=== PATIENT | male | born 1955 ===

== ENCOUNTER 2016-09-11 08:27 | Day surgery (SDC) | payer BC ==
[~2016-09-11] VITALS: Ht 190.5 cm; Wt 102.3 kg
[~2016-09-11 08:27] MED LIST: IBUPROFEN400 MG PO
[2016-09-11] MEDS ORDERED: HYCET1 ML PO (12:26)
--- NOTE | 2016-09-11 12:28 | Provider's Discharge Care Plan ---
Problem, Goal, Plan Problem List 1. S/P LAP REPAIR RIGHT INGUINAL HERNIA Goals: Improve function, Therapeutic intervention Instructions: Follow up as directed, Take meds as directed
--- NOTE | 2016-09-11 12:28 | Provider's Discharge Care Plan ---
Problem, Goal, Plan Problem List 1. S/P LAP REPAIR RIGHT INGUINAL HERNIA Goals: Improve function, Therapeutic intervention Instructions: Follow up as directed, Take meds as directed
--- NOTE | 2016-09-11 12:48 | Operative Report ---
Operative Report Date of Surgery: 09/11/16 Preoperate Diagnosis: right inguinal hernia Postoperative Diagnosis: right indirect anal hernia Surgeon: Christiano Ty MD Construction Manager Surgeon: none Procedure Performed: Laparoscopic right inguinal hernia with 14 x 12 cm preperitoneal mesh FAHEEM repair Anesthesia: Gen. endotracheal Indications: 60-year-old male with several month history of a right groin fold. Patient states that it's very sore with vigorous activity and towards the end of the day. Patient states that he is able to reduce the bulge. On physical examination he is known to have a reducible right inguinal hernia. FINDINGS: Right indirect inguinal hernia moderate to large in size. Repair with 14 x 12 cm [employer]ien Pro-water taxi boat mate mesh Surgical Technique: Patient brought to the operating room placed in the dorsal supine position. Patient underwent general endotracheal anesthesia by the anesthesiology department. After proper anesthesia had taken effect, patient's abdomen was prepped using Betadine and draped in a sterile fashion. An infraumbilical incision made. A Veress needle was introduced through this site into the abdominal cavity., After ascertaining its appropriate position with suction irrigation a pneumoperitoneum was obtained using CO2 insufflation to proximal and 14- 15 mmHg pressure. Once this pressure was reached, the varies needle was removed. A 10 mm trocar was introduced through this site. The trocar removed leaving the sleeve behind, through which a laparoscopic video camera was introduced into the abdominal cavity. The aforementioned findings noted. Under direct visualization a separate 10 mm hole was placed in the right lower quadrant, and a 5 mm trocar was placed in the left lower quadrant. The trochars removed leaving the sleeves behind through which laparoscopic instrumentation was introduced into the abdominal cavity. Peritoneum overlying the hernia was incised using electrocautery grecia. The peritoneum was incised medially to the lateral umbilical ligament on the right and out laterally and inferior to the anterior superior iliac crest spine. The peritoneal dissection followed and the hernia was reduced carefully using a combination of blunt dissection and electrocautery off the cord structures. Once the hernia was reduced, Eran's ligament was identified. A piece of [employer] Pro-Coater Operator [employer]ulation [employer] mesh was selected and cut in an ovoid fashion. The mesh was then oriented and placed in the preperitoneal space occluding Hasselbeck's triangle and the internal ring. Once the mesh was placed in position into a portion of peritoneum was raised up over the mesh and sutured to the superior aspect using 3-0 V-Loc l running stitch. Once the mesh was reperitonealized, approximately 30 cc of 0.5% Marcaine with epinephrine was placed in the preperitoneal space for postoperative analgesia. Hemostasis assured, the pneumoperitoneum was released. All trochar sleeves were removed from the abdominal cavity. All trocar sites approximated using 4-0 silk dermal Polysorb interrupted suture. Steri-Strips placed over each site. Sterile occlusive dressing placed over each wound. Patient was extubated. Patient was transferred to the recovery room in stable condition. There were no intraoperative or anesthetic complications. CONDITION: Stable to postoperative anesthesia recovery room COMPLICATIONS: None ESTIMATED BLOOD LOSS: None FLUIDS:: 300 cc lactated Ringer's DRAINS/PACKING/PROSTHESIS:: 14 x 12 cm mesh SPECIMEN: None
--- NOTE | 2016-09-22 06:38 | OPERATIVE REPORT ---
ADDENDUM DATE OF SURGERY: 09/11/2016 SURGEON: Chaz Ty III, MD POSTOPERATIVE DIAGNOSIS: 1. Right indirect inguinal hernia
--- NOTE | 2016-09-22 06:38 | OPERATIVE REPORT ---
ADDENDUM DATE OF SURGERY: 09/11/2016 SURGEON: Chaz Ty III, MD POSTOPERATIVE DIAGNOSIS: 1. Right indirect inguinal hernia
== END 2016-09-11 14:26 | disposition home or self-care (01) ==
LOC: OR SRH 08:27 → SCU SRH 08:29 → OR SRH 10:15
PROVIDERS: Specialist
PROC: 0YU54JZ Supplement Right Inguinal Region with Synthetic Substitute, Percutaneous Endoscopic Approach (ICD-10-PCS; principal; 2016-09-11 10:15)
DX: K40.90 Unilateral inguinal hernia, without obstruction or gangrene, not specified as recurrent (principal)
CPT/HCPCS: 29229; 29240; 50002; 60001; 70002; 80102; 80212; 80248; 80852; 82502; 82669; 83587; 83711; 83919; 83982; 84038; 84227; 84322; 90047; 90074; 95059